=== PATIENT | male | born 1955 | race Asian ===

== ENCOUNTER 2016-09-02 09:26 | Emergency (ER) | payer OTHER ==
[~2016-09-02] VITALS: Ht 177.8 cm; Wt 84.5 kg
[2016-09-02] MEDS ORDERED: ASPIRIN 81 MG TABLET CHEW PO ONE (10:30)
[2016-09-02] MEDS ORDERED: SODIUM CHLORIDE FLUSH 10ML SYR IVF ONE (10:30)
[2016-09-02 10:58] LABS: ASPARTATE AMINO TRANSFERASE 12 U/L (15-37); BLOOD UREA NITROGEN 15 mg/dL (7-18)
[2016-09-02 11:03] VITALS: BP_DIAS 89
[2016-09-02 11:06] LABS: IS PT STATUS REG ER OR PRE ER? YES
[2016-09-02] MEDS ORDERED: ASPIRIN 81 MG TABLET CHEW ONE (11:08)
[2016-09-02 12:42] VITALS: BP_SYST 145
== END 2016-09-02 12:44 | disposition home or self-care (01) ==
LOC: ED 10:46
DX: R00.2 Palpitations (principal)
CPT/HCPCS: 36415; 71010; 80053; 83690; 83735; 83880; 84436; 84443; 84484; 85025; 93005; 99285